=== PATIENT | female | born 2000 | race Two or more races ===

== ENCOUNTER 2020-11-04 06:17 | Inpatient (IN) ==
[2020-11-04] MEDS ORDERED: ONDANSETRON 4 MG/2 ML VIAL IV PRN ×2 (06:29→16:13)
[2020-11-04] MEDS ORDERED: BUTORPHANOL 2 MG/ML VIAL IV PRN (06:29)
[2020-11-04] MEDS ORDERED: OXYTOCIN/LR 20 UNIT/1,000 ML BAG IV SCH (06:30)
[2020-11-04] MEDS ORDERED: LACTATED RINGERS 1,000 ML IV SCH ×2 (06:30→16:30)
[2020-11-04 06:53] LABS: Basophils % 0.3 % (0.0-0.8); Eosinophils # 0.1 10*3/uL (0.0-0.87); Eosinophils % 1.3 % (0.00-10.9); Hemoglobin 10.6 GM/DL (12.0-16.0); Immature Granulocytes % 0.4 %; Immature Granulocytes Absolute 0.04 #; Lymphocytes # 2.2 10*3/uL (1.4-4.0); Lymphocytes % 22.9 % (21.3-54.2); Mean Corpuscular HGB Conc 33.1 GM/DL (32-36); Mean Corpuscular Volume 79.8 FL (87-102); Mean Platelet Volume 9.6 FL (9.6-12.0); Monocytes % 7.8 % (1.7-12.7); Neutrophils % 67.3 % (38.7-73.9); Platelet Count 422 T/CUMM (130-400); Red Blood Count 4.01 MC/CUMM (3.8-5.5); Red Cell Distribution Width 14.6 % (9.3-17.3); White Blood Count 9.8 T/CUMM (4-12)
[2020-11-04] MEDS ORDERED: AMPICILLIN INJ 2,000 MG in SODIUM CHLORIDE 0.9% 100 ML IV ONE (07:20)
[2020-11-04 07:32] LABS: Bacteria,Urine Occasional /HPF (Few); Bilirubin,Urine Negative (Negative); Blood, Urine Negative (Negative); Glucose,Urine (UA) 150 mg/dL (Negative); Hyaline Casts,Urine 1 /LPF (0-3); Ketones,Urine Negative (Negative); Mucus,Urine Occasional /LPF (Occasional); Nitrite,Urine Negative (Negative); Protein,Urine Negative; RBC,Urine 3 /HPF (0-4); Squamous Epithelial Cell,Urine Occasional /HPF (0-10); Urine Appearance Slightly Hazy (Clear); Urine Color Yellow (Yellow); Urine Specific Gravity 1.014 (1.001-1.035); Urine Urobilinogen < 2.0 EU/DL (0.2-1.0); WBC,Urine 3 /HPF (0-6)
[2020-11-04 09:15] LABS: HIV Antigen/Antibody Result Nonreactive (Nonreactive); Hepatitis B Surface Ag Quant < 0.10 Index; Hepatitis B Surface Ag Result Negative (Negative)
[2020-11-04] MEDS ORDERED: FAMOTIDINE 20 MG/2 ML VIAL IV ONE (10:39)
[2020-11-04] MEDS ORDERED: LACTATED RINGERS 1,000 ML IV ONE (10:39)
[2020-11-04] MEDS ORDERED: CITRIC ACID/SODIUM CITRATE 30 ML UDCUP PO ONE (10:39)
[2020-11-04] MEDS ORDERED: OXYTOCIN 10 UNIT/ML VIAL IM ONE (10:41)
[2020-11-04] MEDS ORDERED: OXYTOCIN/LR 30 UNIT/1,000 ML BAG IV ONE (10:41)
[2020-11-04] MEDS ORDERED: ceFAZolin 2,000 MG in PREMIX 1 EACH IV ONE (10:42)
[2020-11-04] MEDS ORDERED: AMPICILLIN INJ 1,000 MG in SODIUM CHLORIDE 0.9% 100 ML IV SCH (11:30)
[2020-11-04] MEDS ORDERED: miSOPROStoL 200 MCG TABLET ONE (12:33)
[2020-11-04] MEDS ORDERED: METHYLERGONOVINE 0.2 MG/1 ML AMP ONE (12:33)
[2020-11-04] MEDS ORDERED: CARBOPROST TROMETHAMINE 250 MCG/ML AMP IM ONE (12:33)
[2020-11-04] MEDS ORDERED: PHENYLEPHRINE 1 MG/10 ML SYRINGE IV ONE (15:13)
[2020-11-04] MEDS ORDERED: MORPHINE 10 MG/10 ML VIAL ONE (15:13)
[2020-11-04] MEDS ORDERED: ONDANSETRON 4 MG/2 ML VIAL ONE (15:13)
[2020-11-04] MEDS ORDERED: BUPIVACAINE SPINAL 0.75% 2 ML AMP SPINAL ONE (15:13)
[2020-11-04 16:02] LABS: Cord Venous Blood HCO3 21.8 MMOL/L; Cord Venous Blood PCO2 43.4 MMHG; Cord Venous Blood PO2 24.6
[2020-11-04] MEDS ORDERED: ACETAMINOPHEN 325 MG TABLET PO PRN (16:13)
[2020-11-04] MEDS ORDERED: OXYTOCIN/LR 20 UNIT/1,000 ML BAG IV ONE (16:13)
[2020-11-04] MEDS ORDERED: RHO(D) IMMUNE GLOBULIN 300 MCG SYRINGE IM ONE (16:13)
[2020-11-04] MEDS ORDERED: SIMETHICONE CHEW 80 MG TABLET PO PRN (16:13)
[2020-11-04] MEDS ORDERED: MAGNESIUM HYDROXIDE SUSP 30 ML UDCUP PO PRN (16:13)
[2020-11-04 16:18] LABS: Bacteria,Urine Occasional /HPF (Few); Bilirubin,Urine Negative (Negative); Blood, Urine Negative (Negative); Glucose,Urine (UA) Negative (Negative); Ketones,Urine 5 mg/dL (Negative); Mucus,Urine Occasional /LPF (Occasional); Nitrite,Urine Negative (Negative); Protein,Urine Negative; RBC,Urine 3 /HPF (0-4); Urine Appearance CLEAR (Clear); Urine Color Yellow (Yellow); Urine Urobilinogen < 2.0 EU/DL (0.2-1.0); WBC,Urine <1 /HPF (0-6)
[2020-11-04] MEDS ORDERED: HYDROmorphone 2 MG/1 ML VIAL IV SCH (18:30)
[2020-11-04] MEDS ORDERED: ceFAZolin 1,000 MG in SYRINGE 1 EACH IV SCH (20:00)
[2020-11-04] MEDS: DOCUSATE SODIUM 100 MG CAPSULE PO SCH (22:03)
[2020-11-04] MEDS ORDERED: diphenhydrAMINE CAP 25 MG CAPSULE PO PRN (22:50)
[2020-11-04] MEDS ORDERED: diphenhydrAMINE 50 MG/1 ML VIAL IV PRN (22:53)
[2020-11-04] MEDS ORDERED: SODIUM CHLORIDE 0.9% 50 ML IV ONE (23:47)
[2020-11-04] MEDS: ceFAZolin 1,000 MG in SYRINGE 1 EACH IV SCH (23:58)
[2020-11-05 00:13] LABS: Basophils % 0.3 % (0.0-0.8); Eosinophils % 0.2 % (0.00-10.9); Hematocrit 28.1 VOL% (35.7-47.0); Hemoglobin 9.4 GM/DL (12.0-16.0); Immature Granulocytes % 0.5 %; Immature Granulocytes Absolute 0.07 #; Lymphocytes # 1.3 10*3/uL (1.4-4.0); Lymphocytes % 9.2 % (21.3-54.2); Mean Corpuscular HGB Conc 33.5 GM/DL (32-36); Mean Corpuscular Volume 79.4 FL (87-102); Mean Platelet Volume 9.2 FL (9.6-12.0); Monocytes % 5.9 % (1.7-12.7); Neutrophils % 83.9 % (38.7-73.9); Platelet Count 339 T/CUMM (130-400); Red Blood Count 3.54 MC/CUMM (3.8-5.5); Red Cell Distribution Width 14.6 % (9.3-17.3); White Blood Count 14.3 T/CUMM (4-12)
[2020-11-05 08:20] LABS: Basophils % 0.3 % (0.0-0.8); Eosinophils # 0.1 10*3/uL (0.0-0.87); Eosinophils % 0.9 % (0.00-10.9); Hematocrit 26.4 VOL% (35.7-47.0); Hemoglobin 8.7 GM/DL (12.0-16.0); Immature Granulocytes % 0.4 %; Immature Granulocytes Absolute 0.04 #; Lymphocytes # 1.7 10*3/uL (1.4-4.0); Lymphocytes % 15.3 % (21.3-54.2); Mean Corpuscular Volume 79.5 FL (87-102); Mean Platelet Volume 9.6 FL (9.6-12.0); Monocytes % 7.8 % (1.7-12.7); Neutrophils % 75.3 % (38.7-73.9); Platelet Count 290 T/CUMM (130-400); Red Blood Count 3.32 MC/CUMM (3.8-5.5); Red Cell Distribution Width 14.6 % (9.3-17.3); White Blood Count 11.2 T/CUMM (4-12)
[2020-11-05] MEDS ORDERED: MULTIVITAMIN (PRENATAL) TABLET PO SCH (09:00)
[2020-11-05] MEDS ORDERED: ceFAZolin 1,000 MG in SYRINGE 1 EACH IV ONE (10:01)
[2020-11-05] MEDS: IBUPROFEN 800 MG TABLET PO PRN ×2 (10:16→20:16)
[2020-11-05] MEDS: METOCLOPRAMIDE 10 MG TABLET PO SCH ×2 (10:16→18:15)
[2020-11-05] MEDS: DOCUSATE SODIUM 100 MG CAPSULE PO SCH ×2 (10:17→20:17)
[2020-11-05] MEDS ORDERED: diphenhydrAMINE CAP 25 MG CAPSULE PO PRN (10:19)
[2020-11-05] MEDS: ceFAZolin 1,000 MG in SYRINGE 1 EACH IV SCH (10:25)
[2020-11-05] MEDS ORDERED: hydrOXYzine HCL 25 MG TABLET PO PRN (14:30)
[2020-11-06] MEDS: METOCLOPRAMIDE 10 MG TABLET PO SCH (01:48)
[2020-11-06] MEDS: IBUPROFEN 800 MG TABLET PO PRN ×2 (04:30→11:34)
[2020-11-06 10:52] VITALS: BP 138/82
== END 2020-11-06 12:45 | disposition home or self-care (01) | DRG 540 ==
LOC: N.LD 06:17 → N.OB 22:45
PROVIDERS: ADMIT Obstetrics & Gynecology; ATTEND Obstetrics & Gynecology
PROC: LDCSECT (ICD-10-PCS; 2020-11-04 14:00)

== ENCOUNTER 2022-06-21 09:42 | Inpatient (IN) ==
[2022-06-21] MEDS ORDERED: CITRIC ACID/SODIUM CITRATE 30 ML UDCUP PO ONE (10:28)
[2022-06-21] MEDS ORDERED: OXYTOCIN/LR 20 UNIT/1,000 ML BAG IV ONE ×2 (10:28→17:21)
[2022-06-21] MEDS ORDERED: OXYTOCIN/LR 30 UNIT/1,000 ML BAG IV ONE (10:28)
[2022-06-21] MEDS ORDERED: FAMOTIDINE 20 MG/2 ML VIAL IV ONE (10:28)
[2022-06-21] MEDS ORDERED: TRANEXAMIC ACID 1,000 MG in SODIUM CHLORIDE 0.9% 100 ML IV PRN (10:28)
[2022-06-21] MEDS ORDERED: METHYLERGONOVINE 0.2 MG/1 ML AMP IM PRN (10:28)
[2022-06-21] MEDS ORDERED: ceFAZolin 2,000 MG/50 ML DUPLEX IV ONE (10:28)
[2022-06-21] MEDS ORDERED: CARBOPROST TROMETHAMINE 250 MCG/ML AMP IM PRN (10:28)
[2022-06-21] MEDS ORDERED: OXYTOCIN 10 UNIT/ML VIAL IM ONE (10:28)
[2022-06-21] MEDS ORDERED: miSOPROStoL 200 MCG TABLET RECTAL PRN (10:28)
[2022-06-21] MEDS ORDERED: LACTATED RINGERS 1,000 ML IV SCH ×2 (10:30→17:30)
[2022-06-21 11:03] LABS: Basophils % 0.4 % (0.0-0.8); Eosinophils # 0.1 10*3/uL (0.0-0.87); Eosinophils % 1.4 % (0.00-10.9); Hematocrit 28.3 VOL% (35.7-47.0); Hemoglobin 9.1 GM/DL (12.0-16.0); Immature Granulocytes % 0.4 %; Immature Granulocytes Absolute 0.03 #; Lymphocytes # 1.6 10*3/uL (1.4-4.0); Lymphocytes % 22.6 % (21.3-54.2); Mean Corpuscular HGB Conc 32.2 GM/DL (32-36); Mean Corpuscular Volume 73.9 FL (87-102); Mean Platelet Volume 10.2 FL (9.6-12.0); Monocytes # 0.7 10*3/uL (0.11-0.8); Monocytes % 10.4 % (1.7-12.7); Neutrophils % 64.8 % (38.7-73.9); Platelet Count 372 T/CUMM (130-400); Red Blood Count 3.83 MC/CUMM (3.8-5.5); Red Cell Distribution Width 18.1 % (9.3-17.3); White Blood Count 6.9 T/CUMM (4-12)
[2022-06-21 11:24] LABS: Alanine Aminotransferase 33 U/L (13-56); Albumin 2.6 G/DL (3.4-5.0); Alkaline Phosphatase 111 U/L (45-117); Aspartate Amino Transferase 17 U/L (0-37); Bilirubin,Total < 0.39 MG/DL (0.20-1.00); Blood Urea Nitrogen 7 MG/DL (7-18); Calcium 8.9 MG/DL (8.5-10.1); Carbon Dioxide 20 MMOL/L (21-32); Chloride 113 MMOL/L (98-107); Glucose 75 MG/DL (74-106); Osmolality,Calculated 277.3 MOS/KG (273-304); Potassium 3.5 MMOL/L (3.5-5.1); Sodium 141 MMOL/L (136-145); Total Protein 7.2 G/DL (6.4-8.2)
[2022-06-21] MEDS ORDERED: TRANEXAMIC ACID 1,000 MG/10 ML VIAL ONE (11:34)
[2022-06-21] MEDS ORDERED: SODIUM CHLORIDE 0.9% 0 ML IV ONE (11:34)
[2022-06-21] MEDS ORDERED: miSOPROStoL 200 MCG TABLET ONE (11:34)
[2022-06-21] MEDS ORDERED: CARBOPROST TROMETHAMINE 250 MCG/ML AMP IM ONE (11:35)
[2022-06-21] MEDS ORDERED: METHYLERGONOVINE 0.2 MG/1 ML AMP ONE (11:35)
[2022-06-21] MEDS ORDERED: buprenorphine HCL 0.3 MG/ML VIAL ONE (12:19)
[2022-06-21] MEDS ORDERED: BUPIVACAINE SPINAL 0.75% 2 ML AMP SPINAL ONE (12:19)
[2022-06-21] MEDS ORDERED: ONDANSETRON 4 MG/2 ML VIAL ONE (12:20)
[2022-06-21] MEDS ORDERED: PHENYLEPHRINE 1 MG/10 ML SYRINGE IV ONE (15:32)
[2022-06-21] MEDS ORDERED: ACETAMINOPHEN INJ 1,000 MG/100 ML VIAL IV ONE (15:32)
[2022-06-21 15:38] LABS: Cord Arterial Blood HCO3 21.9 MMOL/L
[2022-06-21] MEDS ORDERED: fentaNYL 100 MCG/2 ML VIAL ONE (15:39)
[2022-06-21 15:41] LABS: Cord Venous Blood HCO3 22.5 MMOL/L; Cord Venous Blood PCO2 37.5 MMHG; Cord Venous Blood PO2 32.6
[2022-06-21 15:45] LABS: Bilirubin,Urine Negative (Negative); Blood, Urine Small mg/dL (Negative); Glucose,Urine (UA) Negative (Negative); Ketones,Urine Negative (Negative); Nitrite,Urine Negative (Negative); Protein,Urine Negative (Negative); Urine Appearance Clear (Clear); Urine Color Yellow (Yellow); Urine Specific Gravity 1.025 (1.001-1.035)
[2022-06-21 15:50] LABS: Mucus,Urine Many /LPF (Occasional); RBC,Urine 22 /HPF (0-4); Squamous Epithelial Cell,Urine Occasional /HPF (0-10)
[2022-06-21] MEDS ORDERED: IBUPROFEN 800 MG TABLET PO PRN (17:21)
[2022-06-21] MEDS ORDERED: RHO(D) IMMUNE GLOBULIN 300 MCG SYRINGE IM ONE (17:21)
[2022-06-21] MEDS ORDERED: SIMETHICONE CHEW 80 MG TABLET PO PRN (17:21)
[2022-06-21] MEDS ORDERED: ONDANSETRON 4 MG/2 ML VIAL IV PRN (17:21)
[2022-06-21] MEDS ORDERED: ACETAMINOPHEN 325 MG TABLET PO PRN (17:21)
[2022-06-21] MEDS ORDERED: HYDROmorphone 1 MG/1 ML SYRINGE IV PRN (18:02)
[2022-06-21] MEDS: ACETAMINOPHEN 500 MG TABLET PO SCH (19:52)
[2022-06-21] MEDS: KETOROLAC 30 MG/1 ML VIAL IV SCH (19:52)
[2022-06-21] MEDS: DOCUSATE SODIUM 100 MG CAPSULE PO SCH (20:06)
[2022-06-21] MEDS: METOCLOPRAMIDE 10 MG TABLET PO SCH (20:06)
[2022-06-21 22:15] LABS: Basophils % 0.3 % (0.0-0.8); Eosinophils # 0.1 10*3/uL (0.0-0.87); Eosinophils % 0.4 % (0.00-10.9); Hematocrit 28.8 VOL% (35.7-47.0); Immature Granulocytes % 0.6 %; Immature Granulocytes Absolute 0.07 #; Lymphocytes # 1.6 10*3/uL (1.4-4.0); Lymphocytes % 13.1 % (21.3-54.2); Mean Corpuscular HGB Conc 31.3 GM/DL (32-36); Mean Corpuscular Volume 75.4 FL (87-102); Mean Platelet Volume 9.9 FL (9.6-12.0); Monocytes # 0.7 10*3/uL (0.11-0.8); Monocytes % 5.9 % (1.7-12.7); Neutrophils % 79.7 % (38.7-73.9); Platelet Count 329 T/CUMM (130-400); Red Blood Count 3.82 MC/CUMM (3.8-5.5); Red Cell Distribution Width 18.4 % (9.3-17.3)
[2022-06-21] MEDS ORDERED: ACETAMINOPHEN 500 MG TABLET PO SCH (23:30)
[2022-06-22] MEDS: KETOROLAC 30 MG/1 ML VIAL IV SCH ×2 (02:03→07:54)
[2022-06-22] MEDS: ACETAMINOPHEN 500 MG TABLET PO SCH ×2 (02:03→07:57)
[2022-06-22] MEDS: METOCLOPRAMIDE 10 MG TABLET PO SCH ×3 (02:25→20:02)
[2022-06-22 05:12] LABS: Basophils % 0.4 % (0.0-0.8); Eosinophils # 0.1 10*3/uL (0.0-0.87); Eosinophils % 0.9 % (0.00-10.9); Hematocrit 26.8 VOL% (35.7-47.0); Hemoglobin 8.6 GM/DL (12.0-16.0); Immature Granulocytes % 0.5 %; Immature Granulocytes Absolute 0.05 #; Lymphocytes # 1.6 10*3/uL (1.4-4.0); Mean Corpuscular HGB Conc 32.1 GM/DL (32-36); Mean Corpuscular Volume 74.4 FL (87-102); Mean Platelet Volume 10.4 FL (9.6-12.0); Monocytes # 0.7 10*3/uL (0.11-0.8); Monocytes % 6.5 % (1.7-12.7); Neutrophils % 76.7 % (38.7-73.9); Platelet Count 329 T/CUMM (130-400); Red Cell Distribution Width 18.2 % (9.3-17.3); White Blood Count 10.6 T/CUMM (4-12)
[2022-06-22] MEDS: DOCUSATE SODIUM 100 MG CAPSULE PO SCH ×2 (07:56→09:05)
[2022-06-22] MEDS: MULTIVITAMIN (PRENATAL) TABLET PO SCH ×2 (07:56→09:05)
[2022-06-22] MEDS: MAGNESIUM HYDROXIDE SUSP 30 ML UDCUP PO PRN (07:58)
[2022-06-23] MEDS: DOCUSATE SODIUM 100 MG CAPSULE PO SCH ×3 (05:36→09:05)
[2022-06-23] MEDS: METOCLOPRAMIDE 10 MG TABLET PO SCH (05:53)
[2022-06-23] MEDS: MAGNESIUM HYDROXIDE SUSP 30 ML UDCUP PO PRN ×2 (05:54→09:06)
[2022-06-23] MEDS ORDERED: MAGNESIUM CITRATE 300 ML BOTTLE PO ONE (07:38)
[2022-06-23 07:59] VITALS: BP 117/62
[2022-06-23] MEDS ORDERED: FERROUS SULFATE 325 MG TABLET PO SCH (09:00)
[2022-06-23] MEDS: MULTIVITAMIN (PRENATAL) TABLET PO SCH (09:05)
[2022-06-23] MEDS ORDERED: BISACODYL 10 MG SUPP RECTAL PRN (09:12)
== END 2022-06-23 14:33 | disposition home or self-care (01) | DRG 539 ==
LOC: N.LD 09:42 → N.OB 18:25
PROVIDERS: ADMIT Obstetrics & Gynecology; ATTEND Obstetrics & Gynecology